=== PATIENT | female | born 1965 | race Caucasian/White ===

== ENCOUNTER 2017-04-06 04:29 | Inpatient (IN) | payer BC, MEDICARE ==
--- NOTE | ~2017-04-06 | DS ---
Discharge Summary [facility] [address] [facility] [place]. [address] NAME: KELLY RICKETTS : 67 STATUS : DIS IN PAT#: [id number] AGE: 51 ADM/REG DATE : 04/06/17 MR#: [id number] REPORT SERV DATE: 04/12/17 DICTATED BY: RUDDY DUNCAN DATE: 04/11/17 REPORT STATUS : Draft TRANSCRIBED BY: MODL DATE: 04/11/17 ADMISSION DATE: 04/06/2017 DISCHARGE DATE: 04/11/2017 PROCEDURES DONE: 04/06/2017, chest x-ray: Diffuse opacification of left lung which is seen new since 2014, as chest CT of 2011. FINDINGS: 1. May represent a central bronchial obstruction pneumonia. Recommend clinical correlation. 2. On 04/07/2017, chest CT without contrast. Patchy and nodular infiltrates left upper lobe most consistent with acute pneumonia superimposed on subsegmental atelectasis, posterior left upper lobe. Stable moderate severity and central lobular emphysema, pattern upper lung zone. Stable noncalcified 5.7 mm pulmonary lung nodule, right middle lobe. Considered benign with this degree of stability. REASON FOR ADMISSION: Shortness of breath. HISTORY OF HOSPITAL STAY: A 51-year-old white female with past medical history of COPD with chronic hypoxemic respiratory failure, history of breast cancer, coronary artery disease, presenting with shortness of breath, unknown duration. The shortness of breath was also associated with fever and cough. The patient was coughing up a greenish to yellow sputum color. The patient was admitted for her evaluation of her shortness of breath. Fortunately for the patient, she was able to provide enough sputum culture that shows she was positive for Haemophilus influenzae. The patient was started on Rocephin and Zithromax. The patient responded very well with the addition of Mucomyst. The patient was able to bring up a lot of sputum that has cleared in color from green-yellow to yellow whitish. The patient states that she is doing much better after staying in the hospital, and would like to go home. DISPOSITION: The patient is feeling fine, no complaint. ACTIVITIES: As tolerated. DIET: Cardiac. INSTRUCTIONS UPON DISCHARGE: 1. The patient advised to quit smoking. 2. The patient will follow up PMD within two weeks' time. MEDICATION UPON DISCHARGE: 1. Habitrol 25 mg patch daily, dispensed 30. 2. Levaquin 750 p.o. daily, dispensed 5. 3. Florastor 250 mg p.o. b.i.d., dispensed 10. 4. Stiolto Respimat 2.5 mcg inhale 2 puffs daily, dispensed 1. 5. Albuterol inhaler two puffs q.4 hours p.r.n. Discharge Summary [address] [address] NAME: KELLY RICKETTS : 67 STATUS : DIS IN PAT#: [id number] AGE: 51 ADM/REG DATE : 04/06/17 MR#: [id number] REPORT SERV DATE: 04/12/17 DICTATED BY: RUDDY DUNCAN DATE: 04/11/17 REPORT STATUS : Draft TRANSCRIBED BY: ELIAZAR DATE: 04/11/17 DIAGNOSES UPON DISCHARGE: 1. Shortness of breath secondary to community-acquired pneumonia secondary to haemophilus influenzae versus acute on chronic hypoxic respiratory failure. 2. Community-acquired pneumonia secondary to Haemophilus influenzae. 3. Acute on chronic hypoxic respiratory failure secondary to community-acquired pneumonia. 4. Chronic obstructive pulmonary disease. 5. Tobacco abuse. 6. History of coronary artery disease. 7. History of breast cancer. CRISTOPHER/ELIAZAR Ruddy Duncan MD / [id number] CC: MD Mor Edwards M.D.
--- NOTE | ~2017-04-06 | HP ---
History And Physical [facility] [address] [facility] [place]. [address] NAME: KELLY TRIMBLE : 67 STATUS : ADM IN [facility]#: [id number] AGE: 51 ADM/REG DATE : 04/06/17 MR#: [id number] REPORT SERV DATE: 04/06/17 DICTATED BY: ALISSA DYE DATE: 04/06/17 REPORT STATUS : Draft TRANSCRIBED BY: MODRadha DATE: 04/06/17 DATE OF ADMISSION: 04/06/2017 POINT OF ENTRY: [facility] Emergency Department. [employer]: Gurpreet Crane M.D. CHIEF COMPLAINT: Fever, cough, shortness of breath. HISTORY OF PRESENT ILLNESS: Ms. Chiu is a 51-year-old female with a history of COPD with chronic hypoxic respiratory failure as well as breast cancer and coronary artery disease, who presents to the emergency department today with a one-day history of fevers, body aches with worsening cough, and shortness of breath. The patient states that she did not feel well on , but did not think much of it. Beginning on Saturday, she noted worsening of her baseline cough with yellowish sputum production, as well as shortness of breath, diffuse body aches, as well as chest pain with coughing, as well as inspiration and expiration. She said her fever was as high as 101.7 degrees Fahrenheit. Initial evaluation in the emergency department was notable for a chest x-ray with diffuse left-sided infiltrate. Labs, otherwise, unremarkable. EKG and troponin were nonischemic. ABG was well compensated, just showed some hypoxemia. She was subsequently admitted to the Hospitalist Service for further evaluation and management. The patient states that she has been without her oxygen for at least the past year as she did not want to follow up with Dr. Crane and get a repeat ABG as it was painful, but otherwise, denies any abdominal pain, nausea, vomiting, diarrhea, constipation, dysuria, melena, hematochezia, hemoptysis, or hematemesis. COMPREHENSIVE REVIEW OF SYSTEMS: Otherwise, negative unless listed in the history of present illness. PREVIOUS MEDICAL HISTORY: 1. COPD, formally on oxygen; approximately 3 L by nasal cannula. 2. Breast cancer, status post mastectomy and chemotherapy. 3. Coronary artery disease with PCI. 4. Active tobacco abuse. 5. Chronic hypoxic respiratory failure. SURGICAL HISTORY: 1. Abdominal hysterectomy. 2. Bilateral mastectomy. ALLERGIES: PENICILLIN AND CODEINE. History And Physical [address] [address] NAME: KELLY TRIMBLE : 67 STATUS : ADM IN PAT#: [id number] AGE: 51 ADM/REG DATE : 04/06/17 MR#: [id number] REPORT SERV DATE: 04/06/17 DICTATED BY: ALISSA DYE DATE: 04/06/17 REPORT STATUS : Draft TRANSCRIBED BY: ELIAZAR DATE: 04/06/17 HOME MEDICATIONS: Stiolto Respimat two puffs inhalation daily. SOCIAL HISTORY: She smokes two packs per day. She has at least [id number] smoking history. Denies alcohol. Denies illicits. FAMILY MEDICAL HISTORY: Mother's history is unknown. Father with coronary heart disease. Siblings are healthy. LABS AND IMAGIN. White count is 9.3; hemoglobin is 14.5; hematocrit is 41.8, and platelets 239. 2. Sodium is 141, potassium 3.8, chloride 108, carbon dioxide 26. BUN 14, creatinine 0.78. Glucose is 115; calcium is 8.9; protein 7.0; albumin is 3.4; bilirubin is 0.5; ALT is 11; AST 10; alkaline phosphatase is 67. 3. Lactic acid 0.5. 4. Troponin less than 0.02. 5. Chest x-ray per my review shows COPD-type changes with hyperinflation and flattened diaphragms as well as diffuse left-sided infiltrate involving the upper and lower lobes. 6. ABG; pH is 7.46, pCO2 is 26, pO2 is 53, bicarb is 18, saturating 90% on 2 L by nasal cannula. 7. EKG per review shows normal sinus rhythm with some right axis deviation, but otherwise, no evidence of any acute ischemia or infarction. PHYSICAL EXAMINATION: VITAL SIGNS: Temperature is 99.9 degrees Fahrenheit, pulse is 79, respirations 25, saturating 94% on 3 L nasal cannula. Blood pressure 137/78. GENERAL: Patient is awake, alert, and in no acute distress. Resting comfortably in bed. She is a chronically ill-appearing, very frail female who appears older than the stated age. HEENT: Atraumatic, normocephalic. Moist mucous membranes. Pupils are equal, round, reactive to light and accommodation. Extraocular eye movements intact. No scleral icterus. NECK: No jugular venous distention. No carotid bruits. CARDIAC: Regular rate and rhythm. No murmurs, rubs, or gallops. Normal S1, S2. LUNGS: On oxygen, but in no respiratory distress. Does have increased breath sounds in the bases and prolonged expiratory phase throughout with some mild inspiratory rhonchi in the left upper and lower lung zones. ABDOMEN: Soft, nontender, nondistended. Good bowel sounds. No rebound, guarding, or rigidity. EXTREMITIES: Warm and perfused. No cyanosis, clubbing, or edema. SKIN: Warm and dry. PSYCH: Affect is appropriate. NEURO: Alert and oriented x3. Cranial nerves 2 through 12 grossly intact. Speech is normal. Gait not assessed. ASSESSMENT: Ms. Trimble is a 51-year-old female with a history of chronic obstructive pulmonary disease with chronic hypoxic respiratory failure and active tobacco abuse, who presents with fevers, cough, sputum production, body aches, and chest pain, and found to History And Physical [address] [address] NAME: KELLY TRIMBLE : 67 STATUS : ADM IN [facility]#: [id number] AGE: 51 ADM/REG DATE : 04/06/17 MR#: [id number] REPORT SERV DATE: 04/06/17 DICTATED BY: ALISSA DYE DATE: 04/06/17 REPORT STATUS : Draft TRANSCRIBED BY: LEIAZAR DATE: 04/06/17 have diffuse left-sided pneumonia. PROBLEM LIST: 1. Left-sided pneumonia. 2. [id number] hypoxic respiratory failure. 3. COPD. 4. Active tobacco abuse. 5. Chest pain. PLAN: 1. Pneumonia. We will admit the patient to the Hospitalist Service; place her on IV antibiotics; follow up blood and sputum cultures; check urinary antigens; also place the patient on bronchodilators as well as antitussive medications. 2. COPD. No evidence of any acute exacerbation at this time. 3. [id number]-bv-[id number] hypoxic respiratory failure. The patient is currently saturating well on 3 L by nasal cannula, which appeared to be her recent baseline prior to her discontinuing her oxygen. 4. This patient will likely need to be discharged on home oxygen. 5. Active tobacco abuse. Counseled the need for tobacco cessation. Nicotine replacement protocol. 6. Chest pain. Suspect the patient's chest pain is secondary to her known pneumonia. The patient does describe some pleuritic component; however, in the setting of infiltrate with associated fevers, suspect that this is all due to her pneumonia. We will continue to monitor. 7. DVT prophylaxis. Lovenox subcu. CODE STATUS: The patient wished to be full code. JCB/MODL Alissa Dye MD / [id number] CC: MD Mor Edwards M.D. Suresh Enjeti, M.D.
[2017-04-06 04:01] LABS: INSTRUMENT SERIAL # 8087
[2017-04-06 04:02] LABS: ALLENS TEST Pos; BE (BASE EXCESS) -3.9 MEQ/L (0 +/- 2.5); CARBOXYHEMOGLOBIN 4.6 % (0-3); DEVICE NC; HCO3 (ACTUAL BICARBONATE) 18.3 MEQ/L (23-27); HEMOBLOGIN CONTENT 14.8 G/DL (12-16); METHEMOGLOBIN 0.2 % (0-3); O2 CONTENT 17.7 VOL% (18-24); OPERATOR ID 17589; PCO2 (CO2 TENSION) 27 MMHG (35-45); PO2 (O2 TENSION) 53 MMHG (79-93); SAMPLE Arterial; pH 7.46 (7.37-7.43)
[2017-04-06 04:23] LABS: BASOPHILS 0.1 %; BASOPHILS ABSOLUTE 0.01 10/3/uL (0.0-0.16); EOSINOPHILS 0.2 %; EOSINOPHILS ABSOLUTE 0.02 10/3/uL (0.0-0.53); ER CBC TAT 0 Hrs 00 Mins; HEMATOCRIT 41.8 % (36.0-48.0); HEMOGLOBIN 14.5 g/dL (12.0-16.0); IMMATURE GRANULOCYTES 0.2 %; IMMATURE GRANULOCYTES ABSOLUTE 0.02 10/3/uL (0.0-0.11); LYMPHOCYTES 20.5 %; LYMPHOCYTES ABSOLUTE 1.91 10/3/uL (0.67-4.30); MEAN CORPUS HGB CONC 34.7 g/dL (32.0-36.0); MEAN CORPUSCULAR HEMOGLOB 31.7 pg (26.0-34.0); MEAN CORPUSCULAR VOLUME 91.5 fL (80-100); MEAN PLATELET VOLUME 8.9 fL (9.2-13.0); MONOCYTES 8.5 %; MONOCYTES ABSOLUTE 0.79 10/3/uL (0.21-1.20); NEUTROPHILS 70.5 %; NEUTROPHILS ABSOLUTE 6.55 10/3/uL (2.02-8.40); PLATELET COUNT 239 10/3/uL (150-400); RBC DISTRIBUTION WIDTH 13.8 % (12.0-16.0); RED CELL COUNT 4.57 10/6/uL (4.0-5.6); WHITE BLOOD CELLS 9.3 10/3/uL (4.5-10.5)
[2017-04-06 04:24] LABS: MANUAL DIFF NO %
[~2017-04-06 04:29] MED LIST: EFFEXXR37 PO; MEDROLPAK4 PO; NOLV10 PO; SPIRIVA INH; TYLENOL PM PO; ZITH250 PO
[2017-04-06 04:42] LABS: BUN (BLOOD UREA NITROGEN) 14 MG/DL (6-23); CALCIUM, SERUM 8.9 MG/DL (8.5-10.4); CHLORIDE, SERUM 108 MMOL/L (96-112); CO2 (CARBON DIOXIDE) 26 MMOL/L (24-34); CREATININE 0.78 MG/DL (0.55-1.02); GFR AFRICAN AMERICAN 103 ML/MIN (>=60); GFR NON AFRICAN AMERICAN 89 ML/MIN (>=60); POTASSIUM, SERUM 3.8 MMOL/L (3.5-5.3); SGOT(AST) 10 U/L (5-40); SGPT(ALT) 11 U/L (5-65); SODIUM, SERUM 141 MMOL/L (135-148); TOTAL BILIRUBIN 0.5 MG/DL (0-1.2); TROPONIN I <0.02 NG/ML (<0.05)
[2017-04-06 04:43] LABS: A/G RATIO 0.9 (0.7-1.9); ALBUMIN 3.4 G/DL (3.5-5.0); ALKALINE PHOSPHATASE 67 U/L (45-117); GLOBULIN 3.6 G/DL (2.5-4.1); GLUCOSE, SERUM 115 MG/DL (60-99)
[2017-04-06 04:47] LABS: LACTATE 0.5 MMOL/L (0.3-2.4)
[2017-04-06] MEDS ORDERED: STIOLTO RESPIMAT4 GM INH (04:58)
[2017-04-07 05:06] LABS: BASOPHILS 0.1 %; BASOPHILS ABSOLUTE 0.01 10/3/uL (0.0-0.16); EOSINOPHILS 0.1 %; EOSINOPHILS ABSOLUTE 0.01 10/3/uL (0.0-0.53); HEMATOCRIT 37.7 % (36.0-48.0); HEMOGLOBIN 12.4 g/dL (12.0-16.0); IMMATURE GRANULOCYTES 0.2 %; IMMATURE GRANULOCYTES ABSOLUTE 0.02 10/3/uL (0.0-0.11); LYMPHOCYTES 26.3 %; LYMPHOCYTES ABSOLUTE 2.71 10/3/uL (0.67-4.30); MEAN CORPUSCULAR HEMOGLOB 30.7 pg (26.0-34.0); MEAN CORPUSCULAR VOLUME 93.3 fL (80-100); MEAN PLATELET VOLUME 8.8 fL (9.2-13.0); MONOCYTES 6.5 %; MONOCYTES ABSOLUTE 0.67 10/3/uL (0.21-1.20); NEUTROPHILS 66.8 %; PLATELET COUNT 256 10/3/uL (150-400); RBC DISTRIBUTION WIDTH 13.8 % (12.0-16.0); RED CELL COUNT 4.04 10/6/uL (4.0-5.6); WHITE BLOOD CELLS 10.3 10/3/uL (4.5-10.5)
[2017-04-07 05:09] LABS: MANUAL DIFF NO %; MEAN CORPUS HGB CONC 32.9 g/dL (32.0-36.0)
[2017-04-07 05:20] LABS: A/G RATIO 0.9 (0.7-1.9); ALKALINE PHOSPHATASE 56 U/L (45-117); BUN (BLOOD UREA NITROGEN) 15 MG/DL (6-23); CALCIUM, SERUM 8.2 MG/DL (8.5-10.4); CHLORIDE, SERUM 113 MMOL/L (96-112); CO2 (CARBON DIOXIDE) 26 MMOL/L (24-34); CREATININE 0.76 MG/DL (0.55-1.02); GFR AFRICAN AMERICAN 106 ML/MIN (>=60); GFR NON AFRICAN AMERICAN 91 ML/MIN (>=60); GLOBULIN 3.2 G/DL (2.5-4.1); PHOSPHORUS, SERUM 3.3 MG/DL (2.5-4.5); POTASSIUM, SERUM 3.6 MMOL/L (3.5-5.3); SGOT(AST) 9 U/L (5-40); SGPT(ALT) 10 U/L (5-65); SODIUM, SERUM 144 MMOL/L (135-148); TOTAL BILIRUBIN 0.3 MG/DL (0-1.2); TOTAL PROTEIN 6.2 G/DL (6.0-8.5)
[2017-04-07 05:24] LABS: GLUCOSE, SERUM 87 MG/DL (60-99)
[2017-04-08 05:42] LABS: BASOPHILS 0.1 %; BASOPHILS ABSOLUTE 0.01 10/3/uL (0.0-0.16); EOSINOPHILS 0.9 %; EOSINOPHILS ABSOLUTE 0.07 10/3/uL (0.0-0.53); HEMATOCRIT 37.1 % (36.0-48.0); HEMOGLOBIN 12.3 g/dL (12.0-16.0); IMMATURE GRANULOCYTES 0.1 %; IMMATURE GRANULOCYTES ABSOLUTE 0.01 10/3/uL (0.0-0.11); LYMPHOCYTES 24.5 %; LYMPHOCYTES ABSOLUTE 1.86 10/3/uL (0.67-4.30); MEAN CORPUS HGB CONC 33.2 g/dL (32.0-36.0); MEAN CORPUSCULAR VOLUME 93.5 fL (80-100); MEAN PLATELET VOLUME 8.7 fL (9.2-13.0); MONOCYTES 7.9 %; NEUTROPHILS 66.5 %; NEUTROPHILS ABSOLUTE 5.03 10/3/uL (2.02-8.40); PLATELET COUNT 262 10/3/uL (150-400); RBC DISTRIBUTION WIDTH 13.5 % (12.0-16.0); RED CELL COUNT 3.97 10/6/uL (4.0-5.6); WHITE BLOOD CELLS 7.6 10/3/uL (4.5-10.5)
[2017-04-08 05:43] LABS: MANUAL DIFF NO %
[2017-04-08 05:56] LABS: A/G RATIO 0.8 (0.7-1.9); ALBUMIN 2.7 G/DL (3.5-5.0); ALKALINE PHOSPHATASE 59 U/L (45-117); CALCIUM, SERUM 8.1 MG/DL (8.5-10.4); CHLORIDE, SERUM 113 MMOL/L (96-112); CO2 (CARBON DIOXIDE) 22 MMOL/L (24-34); CREATININE 0.57 MG/DL (0.55-1.02); GFR AFRICAN AMERICAN 125 ML/MIN (>=60); GFR NON AFRICAN AMERICAN 108 ML/MIN (>=60); GLOBULIN 3.3 G/DL (2.5-4.1); GLUCOSE, SERUM 88 MG/DL (60-99); PHOSPHORUS, SERUM 2.5 MG/DL (2.5-4.5); POTASSIUM, SERUM 3.7 MMOL/L (3.5-5.3); SGOT(AST) 9 U/L (5-40); SGPT(ALT) 12 U/L (5-65); SODIUM, SERUM 144 MMOL/L (135-148); TOTAL BILIRUBIN 0.2 MG/DL (0-1.2)
[2017-04-08 06:01] LABS: BUN (BLOOD UREA NITROGEN) 6 MG/DL (6-23)
[2017-04-09 05:20] LABS: BASOPHILS 0.5 %; BASOPHILS ABSOLUTE 0.03 10/3/uL (0.0-0.16); EOSINOPHILS ABSOLUTE 0.13 10/3/uL (0.0-0.53); HEMATOCRIT 36.6 % (36.0-48.0); HEMOGLOBIN 12.5 g/dL (12.0-16.0); IMMATURE GRANULOCYTES 0.2 %; IMMATURE GRANULOCYTES ABSOLUTE 0.01 10/3/uL (0.0-0.11); LYMPHOCYTES 32.9 %; LYMPHOCYTES ABSOLUTE 2.19 10/3/uL (0.67-4.30); MEAN CORPUS HGB CONC 34.2 g/dL (32.0-36.0); MEAN CORPUSCULAR HEMOGLOB 31.3 pg (26.0-34.0); MEAN CORPUSCULAR VOLUME 91.7 fL (80-100); MEAN PLATELET VOLUME 8.4 fL (9.2-13.0); MONOCYTES 10.5 %; NEUTROPHILS 53.9 %; NEUTROPHILS ABSOLUTE 3.59 10/3/uL (2.02-8.40); PLATELET COUNT 245 10/3/uL (150-400); RBC DISTRIBUTION WIDTH 13.3 % (12.0-16.0); RED CELL COUNT 3.99 10/6/uL (4.0-5.6); WHITE BLOOD CELLS 6.7 10/3/uL (4.5-10.5)
[2017-04-09 05:34] LABS: MANUAL DIFF NO %
[2017-04-09 05:41] LABS: A/G RATIO 0.8 (0.7-1.9); ALBUMIN 2.7 G/DL (3.5-5.0); ALKALINE PHOSPHATASE 60 U/L (45-117); BUN (BLOOD UREA NITROGEN) 4 MG/DL (6-23); CALCIUM, SERUM 8.1 MG/DL (8.5-10.4); CHLORIDE, SERUM 111 MMOL/L (96-112); CO2 (CARBON DIOXIDE) 23 MMOL/L (24-34); CREATININE 0.42 MG/DL (0.55-1.02); GFR AFRICAN AMERICAN 139 ML/MIN (>=60); GFR NON AFRICAN AMERICAN 120 ML/MIN (>=60); GLOBULIN 3.2 G/DL (2.5-4.1); GLUCOSE, SERUM 83 MG/DL (60-99); POTASSIUM, SERUM 3.7 MMOL/L (3.5-5.3); SGOT(AST) 10 U/L (5-40); SGPT(ALT) 13 U/L (5-65); SODIUM, SERUM 143 MMOL/L (135-148); TOTAL BILIRUBIN 0.2 MG/DL (0-1.2); TOTAL PROTEIN 5.9 G/DL (6.0-8.5)
[2017-04-09 05:47] LABS: PHOSPHORUS, SERUM 3.3 MG/DL (2.5-4.5)
[2017-04-10 05:01] LABS: BASOPHILS 0.2 %; BASOPHILS ABSOLUTE 0.01 10/3/uL (0.0-0.16); EOSINOPHILS 2.6 %; EOSINOPHILS ABSOLUTE 0.15 10/3/uL (0.0-0.53); HEMATOCRIT 38.6 % (36.0-48.0); HEMOGLOBIN 12.8 g/dL (12.0-16.0); IMMATURE GRANULOCYTES 0.2 %; IMMATURE GRANULOCYTES ABSOLUTE 0.01 10/3/uL (0.0-0.11); LYMPHOCYTES 32.5 %; LYMPHOCYTES ABSOLUTE 1.87 10/3/uL (0.67-4.30); MEAN CORPUS HGB CONC 33.2 g/dL (32.0-36.0); MEAN CORPUSCULAR HEMOGLOB 30.8 pg (26.0-34.0); MEAN PLATELET VOLUME 8.4 fL (9.2-13.0); MONOCYTES 11.7 %; MONOCYTES ABSOLUTE 0.67 10/3/uL (0.21-1.20); NEUTROPHILS 52.8 %; NEUTROPHILS ABSOLUTE 3.04 10/3/uL (2.02-8.40); PLATELET COUNT 286 10/3/uL (150-400); RBC DISTRIBUTION WIDTH 13.3 % (12.0-16.0); RED CELL COUNT 4.15 10/6/uL (4.0-5.6); WHITE BLOOD CELLS 5.8 10/3/uL (4.5-10.5)
[2017-04-10 05:06] LABS: MANUAL DIFF NO %
[2017-04-10 05:07] LABS: A/G RATIO 0.8 (0.7-1.9); ALBUMIN 2.8 G/DL (3.5-5.0); ALKALINE PHOSPHATASE 67 U/L (45-117); BUN (BLOOD UREA NITROGEN) 5 MG/DL (6-23); CHLORIDE, SERUM 107 MMOL/L (96-112); CO2 (CARBON DIOXIDE) 25 MMOL/L (24-34); CREATININE 0.68 MG/DL (0.55-1.02); GFR AFRICAN AMERICAN 118 ML/MIN (>=60); GFR NON AFRICAN AMERICAN 102 ML/MIN (>=60); GLOBULIN 3.6 G/DL (2.5-4.1); PHOSPHORUS, SERUM 3.2 MG/DL (2.5-4.5); SGOT(AST) 6 U/L (5-40); SGPT(ALT) 11 U/L (5-65); SODIUM, SERUM 141 MMOL/L (135-148); TOTAL BILIRUBIN 0.2 MG/DL (0-1.2); TOTAL PROTEIN 6.4 G/DL (6.0-8.5)
[2017-04-10 05:25] LABS: GLUCOSE, SERUM 133 MG/DL (60-99)
[2017-04-11 05:35] LABS: BASOPHILS 0.6 %; BASOPHILS ABSOLUTE 0.03 10/3/uL (0.0-0.16); EOSINOPHILS 2.6 %; EOSINOPHILS ABSOLUTE 0.14 10/3/uL (0.0-0.53); HEMATOCRIT 35.4 % (36.0-48.0); HEMOGLOBIN 12.1 g/dL (12.0-16.0); IMMATURE GRANULOCYTES 0.4 %; IMMATURE GRANULOCYTES ABSOLUTE 0.02 10/3/uL (0.0-0.11); LYMPHOCYTES ABSOLUTE 1.41 10/3/uL (0.67-4.30); MEAN CORPUS HGB CONC 34.2 g/dL (32.0-36.0); MEAN CORPUSCULAR HEMOGLOB 31.5 pg (26.0-34.0); MEAN CORPUSCULAR VOLUME 92.2 fL (80-100); MEAN PLATELET VOLUME 8.2 fL (9.2-13.0); MONOCYTES 15.5 %; MONOCYTES ABSOLUTE 0.84 10/3/uL (0.21-1.20); NEUTROPHILS 54.9 %; NEUTROPHILS ABSOLUTE 2.98 10/3/uL (2.02-8.40); PLATELET COUNT 267 10/3/uL (150-400); RBC DISTRIBUTION WIDTH 13.2 % (12.0-16.0); RED CELL COUNT 3.84 10/6/uL (4.0-5.6); WHITE BLOOD CELLS 5.4 10/3/uL (4.5-10.5)
[2017-04-11 05:36] LABS: MANUAL DIFF NO %
[2017-04-11 05:41] LABS: BUN (BLOOD UREA NITROGEN) 4 MG/DL (6-23); CHLORIDE, SERUM 114 MMOL/L (96-112); CO2 (CARBON DIOXIDE) 24 MMOL/L (24-34); CREATININE 0.35 MG/DL (0.55-1.02); GFR AFRICAN AMERICAN 147 ML/MIN (>=60); GFR NON AFRICAN AMERICAN 127 ML/MIN (>=60); PHOSPHORUS, SERUM 3.4 MG/DL (2.5-4.5); POTASSIUM, SERUM 3.4 MMOL/L (3.5-5.3); SODIUM, SERUM 147 MMOL/L (135-148)
[2017-04-11 05:43] LABS: ALBUMIN 2.1 G/DL (3.5-5.0); CALCIUM, SERUM 7.3 MG/DL (8.5-10.4); GLUCOSE, SERUM 102 MG/DL (60-99)
[2017-04-11] MEDS ORDERED: HABIT21 TOP (11:25)
[2017-04-11] MEDS ORDERED: FLORASTOR250 MG PO (11:29)
[2017-04-11] MEDS ORDERED: LEVAQUIN750 MG PO (11:29)
[2017-04-11] MEDS ORDERED: STIOLTO RESPIMAT4 GM INH (11:29)
[2017-04-11] MEDS ORDERED: VENTOLIN HFA INH (11:30)
== END 2017-04-11 19:09 | disposition home or self-care (01) | DRG 189 ==
LOC: ER 04:29 → 7NO 06:08
PROVIDERS: Hospitalist; Internal Medicine; Specialist
DX: J96.21 Acute and chronic respiratory failure with hypoxia (principal); J14 Pneumonia due to Hemophilus influenzae; J44.0 Chronic obstructive pulmonary disease with (acute) lower respiratory infection; E44.0 Moderate protein-calorie malnutrition; Z68.1 Body mass index [BMI] 19.9 or less, adult; I25.10 Atherosclerotic heart disease of native coronary artery without angina pectoris; F17.210 Nicotine dependence, cigarettes, uncomplicated; Z90.710 Acquired absence of both cervix and uterus; Z88.0 Allergy status to penicillin; Z88.5 Allergy status to narcotic agent; Z95.1 Presence of aortocoronary bypass graft; Z90.13 Acquired absence of bilateral breasts and nipples; Z85.3 Personal history of malignant neoplasm of breast
CPT/HCPCS: 36600; 71010; 71250; 80053; 80069; 82805; 82962; 83605; 83735; 84100; 84484; 85025; 87040; 87070; 87205; 87449; 93005; 94640; 97161-GP; 99285; A9270-GY; J0456; J2405; J3475